=== PATIENT | male | born 2000 | race Caucasian/White ===

== ENCOUNTER 2020-07-25 11:23 | Outpatient (CLI) | payer OTHER, SELFPAY ==
[2020-07-25 11:40] LABS: Basophils Absolute Auto 0.03 K/mm3 (0.00-0.10); Basophils Percent Auto 0.3 % (0.0-1.0); Eosinophils Absolute Auto 0.15 K/mm3 (0.02-0.50); Eosinophils Percent Auto 1.7 % (1.0-6.0); Hematocrit 52.4 % (40.0-54.0); Hemoglobin 17.4 g/dL (14.0-18.0); Immature Granulocyte Absolute 0.03 K/mm3 (0.00-0.00); Immature Granulocyte Percent A 0.3 % (0.0-0.0); Lymphocytes Absolute Auto 1.66 K/mm3 (1.10-4.50); Lymphocytes Percent Auto 18.9 % (18.0-42.0); Mean Corpuscular HGB Conc 33.2 g/dL (32.0-36.0); Mean Corpuscular Hemoglobin 29.4 pg (27.0-31.0); Mean Corpuscular Volume 88.7 fL (78.0-102.0); Mean Platelet Volume 9.5 fl (8.7-11.0); Monocytes Absolute Auto 0.73 K/mm3 (0.10-0.90); Monocytes Percent Auto 8.3 % (2.0-11.0); Neutrophils Absolute Auto 6.2 K/mm3 (1.7-7.2); Neutrophils Percent Auto 70.5 % (50.0-70.0); Platelet Count Result 256 K/mm3 (150-420); Red Blood Count 5.91 M/mm3 (4.70-6.10); Red Cell Distribution Width 12.8 % (11.6-14.4); White Blood Count 8.8 K/mm3 (4.8-10.8)
[2020-07-25 12:40] LABS: Alanine Aminotransferase 49 U/L (16-63); Albumin Level 4.6 g/dL (3.4-5.0); Alkaline Phosphatase 66 U/L (65-260); Amylase 44 U/L (25-115); Anion Gap 10 mmol/L (8-16); Aspartate Amino Transferase 14 U/L (15-37); Bilirubin,Total 0.7 mg/dL (0.00-1.00); Blood Urea Nitrogen 16 mg/dL (7-18); Calcium 9.7 mg/dL (8.5-10.1); Carbon Dioxide 29 mmol/L (21-32); Chloride 98 mmol/L (98-108); Estimated Glomerular Filt Rate > 60; Glucose 91 mg/dL (70-99); Lipase 43 U/L (73-393); Osmolality Calculated 285 mOsm/kg (285-295); Sodium 137 mmol/L (136-145); Thyroid Stimulating Hormone 1.82 uIU/mL (0.52-4.13); Total Protein 8.7 g/dL (6.4-8.2)
[2020-07-26 14:12] LABS: SARS-CoV-2 RNA PCR Negative
== END 2020-07-25 11:24 | disposition home or self-care (01) ==
LOC: CHSLAB 11:28
PROVIDERS: PCP Family Medicine; Visit Provider Family Medicine
DX: K21.00 Gastro-esophageal reflux disease with esophagitis, without bleeding (principal); I10 Essential (primary) hypertension; R19.7 Diarrhea, unspecified; Z20.828 Contact with and (suspected) exposure to other viral communicable diseases
CPT/HCPCS: 36415; 80053; 82150; 83690; 84443; 85025; 87635; C9803; U0003

== ENCOUNTER 2021-09-13 16:02 | Outpatient (CLI) | payer SELFPAY ==
[2021-09-13 17:38] LABS: Influenza A QL RT-PCR Negative (Negative); Influenza B QL RT-PCR Negative (Negative); SARS-CoV-2 RNA PCR Negative (Negative)
== END 2021-09-13 16:03 | disposition home or self-care (01) ==
LOC: CHSLAB 16:04
PROVIDERS: PCP Family Medicine; Visit Provider Family Medicine
DX: J06.9 Acute upper respiratory infection, unspecified (principal); Z20.822 Contact with and (suspected) exposure to COVID-19
CPT/HCPCS: 87502; C9803; U0003; U0005

== ENCOUNTER 2024-01-14 13:48 | Outpatient (CLI) | payer OTHER, SELFPAY ==
--- NOTE | ~2024-01-14 | XR_ITS ---
XR hand LT min 3V DATE: 01/14/2024 14:23 INDICATION: Bilateral hand pain TECHNIQUE: 3 views COMPARISON: None FINDINGS: No fracture or dislocation or periosteal reaction or bone destruction, erosion or chondroca lcinosis or joint space narrowing. IMPRESSION: Negative Reviewed, dictated and finalized at location A. IMPRESSION: Negative
--- NOTE | ~2024-01-14 | XR_ITS ---
XR hand RT min 3V DATE: 01/14/2024 14:25 INDICATION: Bilateral hand pain TECHNIQUE: 3 views COMPARISON: None FINDINGS: No fracture or dislocation milligrams reaction or bone destruction, erosive change, chondro calcinosis or joint space narrowing is noted. IMPRESSION: Negative Reviewed, dictated and finalized at location A. IMPRESSION: Negative
== END 2024-01-14 13:49 | disposition home or self-care (01) ==
PROVIDERS: PCP Family Medicine; Visit Provider Family Medicine
DX: M79.643 Pain in unspecified hand (principal)
CPT/HCPCS: 73130

== ENCOUNTER 2024-04-20 16:48 | Emergency (ER) | payer OTHER, SELFPAY ==
[2024-04-20 16:54] VITALS: BP 138/88; PULSE 98; RESP 20; TEMP 36.7; O2SAT 97
--- NOTE | 2024-04-20 17:42 | ED.URI ---
HPI - URI/Sore Throat General Chief Complaint: Upper Respiratory Infection Stated Complaint: SOB/fever Time Seen by Provider: 04/20/24 17:30 Source: patient, RN notes reviewed and old records reviewed Mode of arrival: ambulatory Limitations: no limitations History of Present Illness HPI Narrative: 23 year old male who [facility] with complaints of 3 day history of headache, cough with congestion fevers, sinus drainage, body aches and diarrhea. Patient reports that he has been taking Tylenol,.Sudafed and using nasal spray for his symptoms.Patient reports no known ill contacts. MD elicited complaint: fever, cough, rhinorrhea, nasal congestion and other (headache, body aches, diarrhea) Onset (ago): day(s) (3) Severity: moderate Treatments prior to arrival: acetaminophen and other (Sudafed and nasal sray) Review of Systems Review of Systems: CONSTITUTIONAL: Reports malaise, chills, sweats, or fever. EYES: Denies visual changes, redness, or discharge. ENT: Reports rhinorrhea, congestion, sinus pain, no otalgia and no sore throat. CARDIOVASCULAR: Denies chest pain, palpitations, or edema. RESPIRATORY: Reports cough.? Denies dyspnea. GASTROINTESTINAL: Denies abdominal pain, nausea, vomiting, positive for diarrhea SKIN: Denies rash or itching. MUSCULOSKELETAL:Reports myalgia. NEUROLOGIC: Reports headache. All systems reviewed & are unremarkable except as noted in HPI and below PMFSH Surgical History Surgical History (Updated 04/21/24 @ 20:08 by Madina Farfan NP) Hx of appendectomy Social History Social History (Updated 04/21/24 @ 20:09 by Madina Farfan NP) Smoking status: Current every day smoker Tobacco type: e-cigarettes/vaping Alcohol intake: current Alcohol use details: social Substance use type: does not use Living arrangements: with family Gender identity (if verbalized by the patient): Male Comments At time of signature, agree with nursing past medical, surgical, social and family history. There is no relevant family history pertinent to the presenting complaint Exam Narrative: GENERAL: Well-appearing, well-nourished, and in no acute distress. HEAD: Normocephalic EYES: PERRLA, conjunctivae clear ENT: Nares clear, turbinates edematous and erythematous, clear discharge. Mucous membranes moist. TM pearly ferrell with dull light reflex bilaterally; no tragal tenderness. Oropharynx erythematous without lesions. Tonsils not enlarged and without exudate, no drooling, no hoarseness, no trismus, uvula midline.post nasal drainage noted NECK: Supple. No lymphadenopathy CHEST: Clear to auscultation, breath sounds equal. No wheezing, rhonchi, rales, or stridor. No respiratory distress, speaks in full sentences.cough, SAO2 97% on room air, no tachypnea HEART: Regular rate and rhythm. No murmur heard. SKIN: Warm, dry, no rash. NEURO: Alert and oriented x3. PSYCH: Normal mood and affect Course Course Emergency Course: Patient is aware of diagnosis, understands and agrees to treatment plan.? Anticipatory guidance given.? Patient agrees to follow-up as directed and is aware of reasons to seek care at the emergency department. Portions of this record may have been created with voice recognition software Level of Care: Express Care Visit Vital Signs Vital signs: Vital Signs Temperature 36.7 C 04/20/24 16:54 Pulse Rate 98 04/20/24 16:54 Respiratory Rate 20 04/20/24 16:54 Blood Pressure 138/88 04/20/24 16:54 Pulse Oximetry 97 04/20/24 16:54 Oxygen Delivery Room Air 04/20/24 16:54 Temperature 36.7 C 04/20/24 16:54 Pulse Rate 98 04/20/24 16:54 Respiratory Rate 20 04/20/24 16:54 Blood Pressure 138/88 04/20/24 16:54 Pulse Oximetry 97 04/20/24 16:54 Oxygen Delivery Room Air 04/20/24 16:54 Reviewed MDM - URI/Sore Throat MDM Narrative Medical decision making narrative: Differential diagnosis considered: Velásquez v
== END 2024-04-20 18:00 | disposition home or self-care (01) ==
PROVIDERS: Emergency Provider Registered Nurse; PCP Family Medicine
DX: U07.1 COVID-19 (principal); F17.290 Nicotine dependence, other tobacco product, uncomplicated
CPT/HCPCS: 87426; 99213; G0463